=== PATIENT | male | born 1970 | race Caucasian/White ===

== ENCOUNTER 2017-08-08 17:27 | Emergency (ER) | payer MEDICAID ==
[~2017-08-08] VITALS: Ht 177.8 cm; Wt 74.0 kg
[2017-08-08 17:29] VITALS: BP 110/66
== END 2017-08-08 19:22 | disposition left against medical advice (07) ==
LOC: ED 19:19
DX: L02.415 Cutaneous abscess of right lower limb (principal)
CPT/HCPCS: 99281

== ENCOUNTER 2017-09-24 20:13 | Emergency (ER) | payer MEDICAID ==
[~2017-09-24] VITALS: Ht 177.8 cm; Wt 79.5 kg
[2017-09-24 20:44] VITALS: BP 116/67
[2017-09-24] MEDS ORDERED: IBUPROFEN 200 MG TABLET PO ONE (21:30)
[2017-09-24] MEDS ORDERED: IBUPROFEN 200 MG TABLET ONE (21:38)
== END 2017-09-24 22:30 | disposition home or self-care (01) ==
LOC: ED 22:05
DX: G89.29 Other chronic pain (principal); M25.561 Pain in right knee; M25.562 Pain in left knee
CPT/HCPCS: 99283